=== PATIENT | male | born 1940 | race Caucasian/White ===

== ENCOUNTER 2019-07-05 14:46 | Emergency (ER) | payer MEDICARE, OTHER ==
--- NOTE | 2019-07-05 16:18 | RAD ---
Exam: Left shoulder 2 views: HISTORY: Deformity with pain following an injury in a fall Comminuted fracture involving the humeral neck. No noah dislocation. Bony demineralization. IMPRESSION: Comminuted slightly foreshortened humeral neck fracture.
[2019-07-05] MEDS ORDERED: Adacel (T-DAP) 0.5 ML SYRINGE ONE (16:51)
== END 2019-07-05 17:30 | disposition home or self-care (01) ==
LOC: ERS 14:46
DX: S42.212A Unspecified displaced fracture of surgical neck of left humerus, initial encounter for closed fracture (principal); E78.5 Hyperlipidemia, unspecified; E11.9 Type 2 diabetes mellitus without complications; I10 Essential (primary) hypertension; F41.9 Anxiety disorder, unspecified; Z23 Encounter for immunization; Z87.891 Personal history of nicotine dependence; Z79.899 Other long term (current) drug therapy; W19.XXXA Unspecified fall, initial encounter
CPT/HCPCS: 90471; 90715

== ENCOUNTER 2021-01-30 02:52 | Emergency (ER) | payer MEDICARE, OTHER ==
[2021-01-30 03:29] LABS: #Basophils 0.1 thou/uL (0.0-0.2); #Lymphocytes 2.3 thou/uL (1.20-3.40); #Monocytes 0.5 thou/uL (0.11-0.59); #Neutrophils 4.9 thou/uL (1.40-6.50); %Basophils 0.7 % (0.0-1.0); %Eosinophils 0.6 % (0.0-10.0); %Lymphocytes 29.1 % (21.0-51.0); %Monocytes 6.9 % (0.0-10.0); %Neutrophils 62.7 % (42.0-75.0); Hemoglobin 14.6 g/dL (14.0-18.0); Mean Corpuscular HGB CONC 33.5 g/dL (32.0-36.0); Mean Corpuscular Hemoglobin 32.6 pg (27.0-31.0); Mean Corpuscular Volume 97.2 fL (78.0-98.0); Mean Platelet Volume 7.9 fL (7.4-10.4); Platelet Count 171 thou/uL (130-400); RBC Distribution Width 11.8 % (11.5-14.5); Red Blood Cell (RBC) Count 4.48 mill/uL (4.70-6.10); White Blood Cell (WBC) Count 7.8 thou/uL (4.8-10.8)
[2021-01-30 03:50] LABS: ALT (SGPT) 17 U/L (8-55); AST (SGOT) 16 U/L (5-34); Albumin 4.3 g/dL (3.4-4.8); Alkaline Phosphatase 104 U/L (40-110); Anion Gap 14 mmol/L (10-20); BUN (Urea Nitrogen) 13 mg/dL (8.4-25.7); Bilirubin, Total 0.4 mg/dL (0.2-1.2); Calc. Creatinine Clearance 0 mL/min (70-130); Calcium 9.4 mg/dL (7.8-10.44); Carbon Dioxide 22 mmol/L (23-31); Chloride 108 mmol/L (98-107); Globulin 2.3 g/dL (2.4-3.5); Glucose 133 mg/dL (83-110); Potassium 4.1 mmol/L (3.5-5.1); Protein, Total 6.6 g/dL (5.8-8.1); Sodium 140 mmol/L (136-145)
[2021-01-30 04:14] LABS: CKMB 1.1 ng/mL (0-6.6)
[2021-01-30] MEDS ORDERED: Metoprolol Tartrate 25 MG TAB PO SCH (09:00)
[2021-01-30] MEDS ORDERED: Nitroglycerin 0.4 MG TAB (25 Tab Bottle) SL PRN (09:09)
[2021-01-30] MEDS ORDERED: Enoxaparin Sodium 40 MG/0.4 ML SYRINGE SC SCH (09:15)
[2021-01-30] MEDS ORDERED: Atorvastatin Calcium 40 MG TAB PO SCH (21:00)
[2021-01-31] MEDS ORDERED: Aspirin Chewable 81 MG TAB PO SCH (09:00)
[2021-01-31] MEDS ORDERED: Enoxaparin Sodium 40 MG/0.4 ML SYRINGE SC SCH (09:00)
== END 2021-01-30 07:43 | disposition short-term general hospital (02) ==
LOC: ERS 02:52 → SUATTDRO 02:52 → ERS 07:43
PROVIDERS: ATTEND Internal Medicine
DX: R07.2 Precordial pain (principal); E11.9 Type 2 diabetes mellitus without complications; I10 Essential (primary) hypertension; Z87.891 Personal history of nicotine dependence
CPT/HCPCS: 71045; 80053; 82553; 84484; 85025; 93005